=== PATIENT | female | born 1960 | race Caucasian/White ===

== ENCOUNTER 2017-12-30 00:40 | Inpatient (IN) | payer OTHER ==
[~2017-12-30] VITALS: Ht 152.4 cm; Wt 63.0 kg
[2017-12-30] MEDS ORDERED: ONDANSETRON 2MG/ML, 2ML ONE (01:25)
[2017-12-30] MEDS ORDERED: MORPHINE SULFATE 4 MG/ML, 1ML ONE ×3 (01:25→03:50)
[2017-12-30] MEDS: MORPHINE SULFATE 4 MG/ML, 1ML IVPush PRN ×2 (01:28→03:05)
[2017-12-30] MEDS ORDERED: ONDANSETRON 2MG/ML, 2ML IVPush ONE (01:30)
[2017-12-30] MEDS ORDERED: SODIUM CHLORIDE FLUSH 10ML SYR IVF ONE (01:30)
[2017-12-30 01:52] LABS: BASOPHILS # (AUTO) 0.02 x10^3/uL (0-0.1); BASOPHILS % (AUTO) 0 % (0-1); EOSINOPHILS # (AUTO) 0.17 x10^3/uL (0-0.4); EOSINOPHILS % (AUTO) 2 % (1-7); LYMPHOCYTES # (AUTO) 1.09 x10^3/uL (1-3.4); LYMPHOCYTES % (AUTO) 10 % (22-44); MD NO; MEAN CORPUSCULAR HEMOGLOBIN 32.3 pg (27.0-34.8); MEAN CORPUSCULAR HGB CONC 33.3 g/dL (32.4-35.8); MEAN CORPUSCULAR VOLUME 96.9 fL (80-100); MEAN PLATELET VOLUME 7.9 fL (7.4-10.4); MONOCYTES # (AUTO) 0.51 x10^3/uL (0.2-0.8); MONOCYTES % (AUTO) 5 % (2-9); NEUTROPHILS # (AUTO) 9.18 x10^3/uL (1.8-6.8); NEUTROPHILS % (AUTO) 84 % (42-75); PLATELET COUNT 330 x10^3/uL (130-400); RED BLOOD COUNT 3.08 x10^6/uL (3.82-5.3); RED CELL DISTRIBUTION WIDTH 16.1 % (9.6-15.2)
[2017-12-30 02:03] LABS: ALANINE AMINOTRANSFERASE 25 U/L (12-78); ALBUMIN 3.1 g/dL (3.4-5.0); ANION GAP 11 mmol/L (5-15); CALCIUM 9.3 mg/dL (8.5-10.1); CHLORIDE 100 mmol/L (98-107)
[2017-12-30 02:08] LABS: ALKALINE PHOSPHATASE 223 U/L (45-117); BILIRUBIN,TOTAL 0.4 mg/dL (0.2-1.0); TOTAL PROTEIN 6.7 g/dL (6.4-8.2); TROPONIN I < 0.015 ng/mL (0.000-0.045)
[2017-12-30 02:13] LABS: INTERNATIONAL NORMALIZED RATIO 0.97 (0.93-1.1)
[2017-12-30] MEDS ORDERED: SEVE800T8 PO (03:14)
[2017-12-30] MEDS ORDERED: OMEP-110 PO (03:15)
[2017-12-30] MEDS ORDERED: ONDA4TAB10 PO (03:16)
[2017-12-30] MEDS ORDERED: ALBU18HF INH (03:17)
[2017-12-30] MEDS ORDERED: CETI10TA24 PO (03:18)
[2017-12-30] MEDS ORDERED: astelin spray (03:19)
[2017-12-30] MEDS ORDERED: SENN-87 PO (03:20)
[2017-12-30] MEDS ORDERED: CALC400T40 PO (03:21)
[2017-12-30] MEDS ORDERED: MOME17SP NAS (03:23)
[2017-12-30] MEDS ORDERED: MONT10TA6 PO (03:26)
[2017-12-30] MEDS ORDERED: CHOL2000 PO (03:44)
[2017-12-30] MEDS ORDERED: MORPHINE SULFATE 4 MG/ML, 1ML IVPush ONE (04:00)
[2017-12-30 04:44] VITALS: BP 94/64
[2017-12-30] MEDS ORDERED: POLYETHYLENE GLYCOL 17 GM PACKET PO PRN (06:30)
[2017-12-30] MEDS ORDERED: ACETAMINOPHEN 325 MG TABLET PO PRN (06:30)
[2017-12-30] MEDS ORDERED: OXYcodone IR 5MG TABLET PO PRN (06:30)
[2017-12-30] MEDS: ASPIRIN 81 MG TABLET EC PO SCH (06:30)
[2017-12-30] MEDS ORDERED: morphine SULFATE 10 MG/ML, 1ML IVPush PRN (06:30)
[2017-12-30] MEDS ORDERED: DOCUSATE 100 MG CAPSULE PO PRN (06:30)
[2017-12-30] MEDS ORDERED: BISACODYL 10 MG SUPP PR PRN (06:30)
[2017-12-30] MEDS ORDERED: hydrALAzine 20 MG/ML, 1ML IVPush PRN (06:30)
[2017-12-30] MEDS ORDERED: NITROGLYCERIN 0.4 MG BOTTLE (25 TABS) SL PRN (06:30)
[2017-12-30 07:06] LABS: FREE T4 (FREE THYROXINE) 1.01 ng/dL (0.76-1.46); THYROID STIMULATING HORMONE 1.3 mIU/L (0.358-3.740)
[2017-12-30 07:10] LABS: HEMOGLOBIN A1C 4.4 % (4.2-6.3)
[2017-12-30] MEDS: HEPARIN 5,000 UNITS/ML, 1ML SQ SCH ×2 (07:14→16:41)
[2017-12-30] MEDS: SEVELAMER 800MG TABLET PO SCH ×3 (09:01→17:09)
[2017-12-30 09:08] LABS: TROPONIN I < 0.015 ng/mL (0.000-0.045)
[2017-12-30 09:14] VITALS: BP 104/69
[2017-12-30] MEDS: CHOLECALCIFEROL 1,000 UNIT TABLET PO SCH (09:17)
[2017-12-30] MEDS: ALBUTEROL SULFATE INH SCH ×2 (09:17→15:28)
[2017-12-30] MEDS: SENNOSIDES 8.6 MG TABLET PO SCH (09:18)
[2017-12-30] MEDS: FLUTICASONE NASAL SPRAY 16GM NAS SCH (10:36)
[2017-12-30] MEDS ORDERED: REGADENOSON 0.4 MG/5 ML SYRINGE ONE (11:49)
[2017-12-30 14:15] LABS: TROPONIN I < 0.015 ng/mL (0.000-0.045)
[2017-12-30 14:43] VITALS: BP 115/72
[2017-12-30] MEDS: ONDANSETRON 2MG/ML, 2ML IVPush PRN (17:09)
[2017-12-30] MEDS ORDERED: OMNIPAQUE 350 MG/ML, 100ML BOTTLE ONE (17:15)
[2017-12-30] MEDS ORDERED: ALBUTEROL SULFATE 2.5 MG/3 ML NPPB PRN (17:30)
[2017-12-30] MEDS ORDERED: HEPARIN 25,000 UNITS/500ML PMX 500 ML ONE (17:46)
[2017-12-30] MEDS ORDERED: HEPARIN 5,000 UNITS/ML, 1ML IV ONE (18:00)
[2017-12-30 22:20] VITALS: BP 107/70
[2017-12-30] MEDS: HEPARIN 25,000 UNITS/500ML PMX 500 ML IV PRN (23:20)
[2017-12-30] MEDS: CALCIUM CARBONATE 500 MG TABLET PO SCH (23:21)
[2017-12-30] MEDS: ONDANSETRON ODT 4 MG PO SCH (23:21)
[2017-12-30] MEDS: MONTELUKAST 10 MG TABLET PO SCH (23:21)
[2017-12-30] MEDS: OMEPRAZOLE 20 MG CAPSULE.DR PO SCH (23:21)
[2017-12-31 02:12] VITALS: BP 100/68
[2017-12-31] MEDS: ASPIRIN 81 MG TABLET EC PO SCH (05:13)
[2017-12-31 05:52] LABS: MEAN CORPUSCULAR HEMOGLOBIN 32.6 pg (27.0-34.8); MEAN CORPUSCULAR HGB CONC 33.3 g/dL (32.4-35.8); MEAN CORPUSCULAR VOLUME 97.8 fL (80-100); MEAN PLATELET VOLUME 7.6 fL (7.4-10.4); PLATELET COUNT 277 x10^3/uL (130-400); RED BLOOD COUNT 2.86 x10^6/uL (3.82-5.3); RED CELL DISTRIBUTION WIDTH 16.4 % (9.6-15.2)
[2017-12-31 05:55] LABS: ALANINE AMINOTRANSFERASE 268 U/L (12-78); ALBUMIN 2.7 g/dL (3.4-5.0); ANION GAP 8 mmol/L (5-15); CALCIUM 8.2 mg/dL (8.5-10.1); CHLORIDE 103 mmol/L (98-107); CREATININE 5.41 mg/dL (0.55-1.02)
[2017-12-31 05:58] LABS: ALKALINE PHOSPHATASE 378 U/L (45-117); BILIRUBIN,TOTAL 0.9 mg/dL (0.2-1.0); CHOLESTEROL, TOTAL 133 mg/dL (140-239); HDL CHOL % 50 % (28-40); HDL CHOLESTEROL (DIRECT) 66 mg/dL (40-60); LDL CHOLESTEROL,CALCULATED 55 mg/dL (54-169); LDL/HDL RATIO 0.8 (0.5-3.0); TOTAL PROTEIN 5.8 g/dL (6.4-8.2); TRIGLYCERIDES 62 mg/dL (50-200); VLDL CHOLESTEROL 12 mg/dL (0-25)
[2017-12-31 06:11] LABS: BASOPHILS # (AUTO) 0.03 x10^3/uL (0-0.1); BASOPHILS % (AUTO) 1 % (0-1); EOSINOPHILS # (AUTO) 0.21 x10^3/uL (0-0.4); EOSINOPHILS % (AUTO) 4 % (1-7); LYMPHOCYTES # (AUTO) 0.72 x10^3/uL (1-3.4); LYMPHOCYTES % (AUTO) 14 % (22-44); MD SCAN; MONOCYTES # (AUTO) 0.58 x10^3/uL (0.2-0.8); MONOCYTES % (AUTO) 12 % (2-9); NEUTROPHILS % (AUTO) 69 % (42-75)
[2017-12-31] MEDS: HEPARIN 5,000 UNITS/ML, 1ML IV PRN ×2 (06:35→19:10)
[2017-12-31] MEDS: ALBUTEROL SULFATE INH SCH ×2 (07:19→20:53)
[2017-12-31 08:11] VITALS: BP 99/60
[2017-12-31] MEDS: SENNOSIDES 8.6 MG TABLET PO SCH (08:19)
[2017-12-31] MEDS: SEVELAMER 800MG TABLET PO SCH ×3 (08:19→16:31)
[2017-12-31] MEDS: CHOLECALCIFEROL 1,000 UNIT TABLET PO SCH (08:19)
[2017-12-31] MEDS: FLUTICASONE NASAL SPRAY 16GM NAS SCH (08:19)
[2017-12-31 10:29] LABS: GAMMA GLUTAMYL TRANSPEPTIDASE 286 U/L (5-55)
[2017-12-31 10:31] LABS: CREATINE KINASE, TOTAL 34 U/L (26-192)
[2017-12-31 12:52] VITALS: BP 111/70
[2017-12-31] MEDS: MONTELUKAST 10 MG TABLET PO SCH (20:51)
[2017-12-31] MEDS: OMEPRAZOLE 20 MG CAPSULE.DR PO SCH (20:51)
[2017-12-31] MEDS: CALCIUM CARBONATE 500 MG TABLET PO SCH (20:51)
[2017-12-31] MEDS: ONDANSETRON ODT 4 MG PO SCH (20:51)
[2017-12-31 20:53] VITALS: BP 117/74
[2018-01-01 01:44] LABS: BASOPHILS # (AUTO) 0.03 x10^3/uL (0-0.1); BASOPHILS % (AUTO) 1 % (0-1); EOSINOPHILS # (AUTO) 0.32 x10^3/uL (0-0.4); EOSINOPHILS % (AUTO) 6 % (1-7); LYMPHOCYTES # (AUTO) 1.31 x10^3/uL (1-3.4); LYMPHOCYTES % (AUTO) 26 % (22-44); MD NO; MEAN CORPUSCULAR HEMOGLOBIN 32.3 pg (27.0-34.8); MEAN CORPUSCULAR HGB CONC 32.9 g/dL (32.4-35.8); MEAN CORPUSCULAR VOLUME 98.2 fL (80-100); MEAN PLATELET VOLUME 8.1 fL (7.4-10.4); MONOCYTES # (AUTO) 0.64 x10^3/uL (0.2-0.8); MONOCYTES % (AUTO) 13 % (2-9); NEUTROPHILS # (AUTO) 2.73 x10^3/uL (1.8-6.8); NEUTROPHILS % (AUTO) 54 % (42-75); PLATELET COUNT 270 x10^3/uL (130-400); RED BLOOD COUNT 2.74 x10^6/uL (3.82-5.3); RED CELL DISTRIBUTION WIDTH 16.6 % (9.6-15.2)
[2018-01-01 01:57] LABS: ALBUMIN 2.5 g/dL (3.4-5.0); ANION GAP 11 mmol/L (5-15); CALCIUM 8.2 mg/dL (8.5-10.1); CHLORIDE 101 mmol/L (98-107)
[2018-01-01 02:00] LABS: ALANINE AMINOTRANSFERASE 175 U/L (12-78); ALKALINE PHOSPHATASE 316 U/L (45-117); BILIRUBIN,TOTAL 0.5 mg/dL (0.2-1.0); CREATININE 8.54 mg/dL (0.55-1.02); TOTAL PROTEIN 5.8 g/dL (6.4-8.2)
[2018-01-01 02:15] VITALS: BP 106/70
[2018-01-01] MEDS: ASPIRIN 81 MG TABLET EC PO SCH (05:34)
[2018-01-01] MEDS: HEPARIN 25,000 UNITS/500ML PMX 500 ML IV PRN (05:34)
[2018-01-01] MEDS: SEVELAMER 800MG TABLET PO SCH ×3 (08:20→17:45)
[2018-01-01 08:28] VITALS: BP 110/69
[2018-01-01] MEDS: ALBUTEROL SULFATE INH SCH ×2 (09:21→21:00)
[2018-01-01] MEDS: SENNOSIDES 8.6 MG TABLET PO SCH (09:24)
[2018-01-01] MEDS: FLUTICASONE NASAL SPRAY 16GM NAS SCH (09:26)
[2018-01-01] MEDS: CHOLECALCIFEROL 1,000 UNIT TABLET PO SCH (09:26)
[2018-01-01] MEDS ORDERED: WARFARIN HIGH DOSE PROTOCOL XX PRN (10:00)
[2018-01-01] MEDS ORDERED: WARFARIN BIOPROSTHETIC VALVE PROTOCOL 2-3 XX PRN (10:00)
[2018-01-01 10:36] LABS: INTERNATIONAL NORMALIZED RATIO 0.98 (0.93-1.1); PROTHROMBIN TIME 10.1 Seconds (9.6-11.5)
[2018-01-01] MEDS ORDERED: LIDOCAINE 1%, 20ML ONE (10:41)
[2018-01-01] MEDS ORDERED: MIDAZOLAM 1 MG/ML, 2ML ONE ×2 (10:51→10:52)
[2018-01-01] MEDS ORDERED: FENTANYL PF 100 MCG/2ML ONE (10:51)
[2018-01-01] MEDS ORDERED: FLUMAZENIL 0.1 MG/1 ML, 5ML ONE (10:52)
[2018-01-01] MEDS ORDERED: NALOXONE 1 MG/ML, 2ML ONE (10:52)
[2018-01-01] MEDS ORDERED: CEFAZOLIN PMX 1GM/50ML 50 ML ONE (10:56)
[2018-01-01 12:17] VITALS: BP 105/71
[2018-01-01] MEDS ORDERED: WARFARIN 7.5 MG TABLET PO-COUM ONE (18:00)
[2018-01-01 19:02] VITALS: BP 105/71
[2018-01-01] MEDS: OMEPRAZOLE 20 MG CAPSULE.DR PO SCH (20:46)
[2018-01-01] MEDS: MONTELUKAST 10 MG TABLET PO SCH (20:46)
[2018-01-01] MEDS: CALCIUM CARBONATE 500 MG TABLET PO SCH (20:46)
[2018-01-01] MEDS: ONDANSETRON ODT 4 MG PO SCH (20:46)
[2018-01-02 02:08] VITALS: BP 116/77
[2018-01-02] MEDS: ASPIRIN 81 MG TABLET EC PO SCH (05:10)
[2018-01-02 05:41] LABS: BASOPHILS # (AUTO) 0.03 x10^3/uL (0-0.1); BASOPHILS % (AUTO) 1 % (0-1); EOSINOPHILS # (AUTO) 0.19 x10^3/uL (0-0.4); EOSINOPHILS % (AUTO) 5 % (1-7); LYMPHOCYTES % (AUTO) 19 % (22-44); MD NO; MEAN CORPUSCULAR HEMOGLOBIN 32.5 pg (27.0-34.8); MEAN CORPUSCULAR HGB CONC 33.9 g/dL (32.4-35.8); MEAN PLATELET VOLUME 7.9 fL (7.4-10.4); MONOCYTES # (AUTO) 0.46 x10^3/uL (0.2-0.8); MONOCYTES % (AUTO) 11 % (2-9); NEUTROPHILS # (AUTO) 2.68 x10^3/uL (1.8-6.8); NEUTROPHILS % (AUTO) 65 % (42-75); PLATELET COUNT 276 x10^3/uL (130-400); RED BLOOD COUNT 3.14 x10^6/uL (3.82-5.3); RED CELL DISTRIBUTION WIDTH 16.5 % (9.6-15.2)
[2018-01-02 05:42] LABS: INTERNATIONAL NORMALIZED RATIO 0.97 (0.93-1.1)
[2018-01-02 05:53] LABS: ANION GAP 11 mmol/L (5-15); CALCIUM 8.3 mg/dL (8.5-10.1); CHLORIDE 93 mmol/L (98-107)
[2018-01-02 05:54] LABS: CREATININE 5.25 mg/dL (0.55-1.02)
[2018-01-02] MEDS: HEPARIN 5,000 UNITS/ML, 1ML IV PRN ×2 (06:07→14:11)
[2018-01-02] MEDS: ONDANSETRON 2MG/ML, 2ML IVPush PRN (06:37)
[2018-01-02 06:45] VITALS: BP 102/69
[2018-01-02 07:50] LABS: ALANINE AMINOTRANSFERASE 120 U/L (12-78)
[2018-01-02 07:52] LABS: ALKALINE PHOSPHATASE 325 U/L (45-117)
[2018-01-02] MEDS: SEVELAMER 800MG TABLET PO SCH ×3 (08:00→17:55)
[2018-01-02] MEDS: CALCIUM CARBONATE 500 MG TABLET PO SCH ×2 (09:00→21:41)
[2018-01-02] MEDS: MONTELUKAST 10 MG TABLET PO SCH ×2 (09:00→21:41)
[2018-01-02] MEDS: ALBUTEROL SULFATE INH SCH ×2 (09:00→21:00)
[2018-01-02] MEDS: SENNOSIDES 8.6 MG TABLET PO SCH (09:15)
[2018-01-02] MEDS: CHOLECALCIFEROL 1,000 UNIT TABLET PO SCH (09:16)
[2018-01-02] MEDS ORDERED: LIDOCAINE 2%, 20ML ONE ×2 (09:21→10:23)
[2018-01-02] MEDS ORDERED: MIDAZOLAM 1 MG/ML, 2ML ONE (09:55)
[2018-01-02] MEDS ORDERED: FENTANYL PF 100 MCG/2ML ONE (09:55)
[2018-01-02] MEDS ORDERED: VISIPAQUE 270 MG/ML, 50ML BOTTLE ONE (10:00)
[2018-01-02] MEDS: FLUTICASONE NASAL SPRAY 16GM NAS SCH (11:40)
[2018-01-02 11:49] VITALS: BP 110/74
[2018-01-02 14:18] VITALS: BP 103/68
[2018-01-02] MEDS ORDERED: WARFARIN 7.5 MG TABLET PO-COUM ONE (18:00)
[2018-01-02] MEDS ORDERED: CINA30TA2 PO (18:38)
[2018-01-02 20:09] VITALS: BP 101/66
[2018-01-02] MEDS: HEPARIN 25,000 UNITS/500ML PMX 500 ML IV PRN (21:38)
[2018-01-02] MEDS: OMEPRAZOLE 20 MG CAPSULE.DR PO SCH (21:41)
[2018-01-02] MEDS: ONDANSETRON ODT 4 MG PO SCH (21:41)
[2018-01-03 01:33] VITALS: BP 108/71
[2018-01-03 01:36] VITALS: BP 108/71
[2018-01-03 02:16] LABS: PROTHROMBIN TIME 10.3 Seconds (9.6-11.5)
[2018-01-03] MEDS: HEPARIN 5,000 UNITS/ML, 1ML IV PRN (03:29)
[2018-01-03] MEDS: ASPIRIN 81 MG TABLET EC PO SCH (06:00)
[2018-01-03] MEDS: SEVELAMER 800MG TABLET PO SCH ×3 (08:10→18:16)
[2018-01-03] MEDS: FLUTICASONE NASAL SPRAY 16GM NAS SCH (08:10)
[2018-01-03] MEDS: SENNOSIDES 8.6 MG TABLET PO SCH (08:10)
[2018-01-03] MEDS: CHOLECALCIFEROL 1,000 UNIT TABLET PO SCH (08:10)
[2018-01-03] MEDS: ALBUTEROL SULFATE INH SCH ×2 (08:11→21:00)
[2018-01-03 08:14] VITALS: BP 98/67
[2018-01-03] MEDS ORDERED: ESTR30CR VG (08:15)
[2018-01-03] MEDS: ESTROGENS CONJUGATED VAG CRM 0.625MG/1G, 30GM VG SCH (10:58)
[2018-01-03] MEDS: WARFARIN MODERAT DOSE PROTOCOL XX SCH (12:00)
[2018-01-03 13:40] VITALS: BP 103/71
[2018-01-03] MEDS ORDERED: WARFARIN 5 MG TABLET PO-COUM SCH (18:00)
[2018-01-03] MEDS: CINACALCET 30 MG TABLET PO SCH (18:17)
[2018-01-03 19:00] VITALS: BP 111/72
[2018-01-03] MEDS: MONTELUKAST 10 MG TABLET PO SCH (21:47)
[2018-01-03] MEDS: OMEPRAZOLE 20 MG CAPSULE.DR PO SCH (21:48)
[2018-01-03] MEDS: CALCIUM CARBONATE 500 MG TABLET PO SCH (21:48)
[2018-01-03] MEDS: ONDANSETRON ODT 4 MG PO SCH (21:48)
[2018-01-03] MEDS: HEPARIN 25,000 UNITS/500ML PMX 500 ML IV PRN (21:58)
[2018-01-04 01:35] VITALS: BP 93/60
[2018-01-04] MEDS: ASPIRIN 81 MG TABLET EC PO SCH (05:29)
[2018-01-04 05:32] LABS: INTERNATIONAL NORMALIZED RATIO 1.36 (0.93-1.1); PROTHROMBIN TIME 13.9 Seconds (9.6-11.5)
[2018-01-04 07:47] VITALS: BP 92/63
[2018-01-04] MEDS: FLUTICASONE NASAL SPRAY 16GM NAS SCH (08:44)
[2018-01-04] MEDS: SEVELAMER 800MG TABLET PO SCH ×3 (08:44→17:06)
[2018-01-04] MEDS: SENNOSIDES 8.6 MG TABLET PO SCH (08:44)
[2018-01-04] MEDS: CHOLECALCIFEROL 1,000 UNIT TABLET PO SCH (08:44)
[2018-01-04] MEDS: CINACALCET 30 MG TABLET PO SCH (08:44)
[2018-01-04] MEDS: ESTROGENS CONJUGATED VAG CRM 0.625MG/1G, 30GM VG SCH (08:45)
[2018-01-04] MEDS: ALBUTEROL SULFATE INH SCH ×2 (09:00→20:19)
[2018-01-04] MEDS ORDERED: ONDANSETRON 4 MG TABLET PO PRN (09:30)
[2018-01-04] MEDS: ONDANSETRON 2MG/ML, 2ML IVPush PRN (09:34)
[2018-01-04] MEDS: WARFARIN MODERAT DOSE PROTOCOL XX SCH (12:00)
[2018-01-04 15:17] VITALS: BP 102/64
[2018-01-04] MEDS ORDERED: WARFARIN 5 MG TABLET PO-COUM ONE (16:58)
[2018-01-04] MEDS ORDERED: WARFARIN 10 MG TABLET PO-COUM SCH (18:00)
[2018-01-04 18:43] VITALS: BP 98/61
[2018-01-04] MEDS: MONTELUKAST 10 MG TABLET PO SCH (20:19)
[2018-01-04] MEDS: CALCIUM CARBONATE 500 MG TABLET PO SCH (20:19)
[2018-01-04] MEDS: ONDANSETRON ODT 4 MG PO SCH (20:19)
[2018-01-04] MEDS: OMEPRAZOLE 20 MG CAPSULE.DR PO SCH (20:19)
[2018-01-05 00:29] VITALS: BP 90/60
[2018-01-05] MEDS: HEPARIN 25,000 UNITS/500ML PMX 500 ML IV PRN (00:38)
[2018-01-05] MEDS: ASPIRIN 81 MG TABLET EC PO SCH (05:30)
[2018-01-05 05:50] LABS: PROTHROMBIN TIME 20.3 Seconds (9.6-11.5)
[2018-01-05] MEDS ORDERED: WARF5TAB PO-COUM (07:33)
[2018-01-05 07:45] VITALS: BP 98/66
[2018-01-05] MEDS: ALBUTEROL SULFATE INH SCH (09:00)
[2018-01-05] MEDS: ONDANSETRON 2MG/ML, 2ML IVPush PRN (09:01)
[2018-01-05] MEDS: FLUTICASONE NASAL SPRAY 16GM NAS SCH (09:01)
[2018-01-05] MEDS: SEVELAMER 800MG TABLET PO SCH ×2 (09:14→13:14)
[2018-01-05] MEDS: WARFARIN MODERAT DOSE PROTOCOL XX SCH (12:00)
[2018-01-05] MEDS: CHOLECALCIFEROL 1,000 UNIT TABLET PO SCH (13:15)
[2018-01-05] MEDS: SENNOSIDES 8.6 MG TABLET PO SCH (13:15)
[2018-01-05] MEDS: ESTROGENS CONJUGATED VAG CRM 0.625MG/1G, 30GM VG SCH (13:15)
[2018-01-05] MEDS: CINACALCET 30 MG TABLET PO SCH (13:15)
[2018-01-05] MEDS: OMEPRAZOLE 20 MG CAPSULE.DR PO SCH (14:28)
[2018-01-05] MEDS ORDERED: ALUMINUM/MAG/SIMETHICONE 30 ML UDC PO ONE (14:30)
[2018-01-05 14:59] VITALS: BP 112/69
[2018-01-05] MEDS ORDERED: WARFARIN 5 MG TABLET PO-COUM SCH (18:00)
== END 2018-01-05 15:36 | disposition home or self-care (01) | DRG 175 ==
LOC: ED 02:06 → EDIP 03:50 → 5SO 04:40 → 4WST 01-01 13:24
PROVIDERS: ADMIT Internal Medicine; ATTEND Hospitalist
PROC: 5A1D70Z Performance of Urinary Filtration, Intermittent, Less than 6 Hours Per Day (ICD-10-PCS; principal; 2017-12-30)
PROC: 5A1D70Z Performance of Urinary Filtration, Intermittent, Less than 6 Hours Per Day (ICD-10-PCS; 2018-01-01)
PROC: 5A1D70Z Performance of Urinary Filtration, Intermittent, Less than 6 Hours Per Day (ICD-10-PCS; 2018-01-01)
PROC: 5A1D70Z Performance of Urinary Filtration, Intermittent, Less than 6 Hours Per Day (ICD-10-PCS; 2018-01-01)
PROC: 5A1D70Z Performance of Urinary Filtration, Intermittent, Less than 6 Hours Per Day (ICD-10-PCS; 2018-01-01)
PROC: 0J2TXYZ Change Other Device in Trunk Subcutaneous Tissue and Fascia, External Approach (ICD-10-PCS; 2018-01-01)
PROC: 0J2TXYZ Change Other Device in Trunk Subcutaneous Tissue and Fascia, External Approach (ICD-10-PCS; 2018-01-02)
DX: I26.99 Other pulmonary embolism without acute cor pulmonale (principal); E43 Unspecified severe protein-calorie malnutrition; T86.12 Kidney transplant failure; K86.2 Cyst of pancreas; N18.6 End stage renal disease; E87.1 Hypo-osmolality and hyponatremia; N25.0 Renal osteodystrophy; N25.81 Secondary hyperparathyroidism of renal origin; J98.11 Atelectasis; D63.1 Anemia in chronic kidney disease; Z68.27 Body mass index [BMI] 27.0-27.9, adult; J45.909 Unspecified asthma, uncomplicated; M19.90 Unspecified osteoarthritis, unspecified site; Y83.0 Surgical operation with transplant of whole organ as the cause of abnormal reaction of the patient, or of later complication, without mention of misadventure at the time of the procedure; Z79.01 Long term (current) use of anticoagulants; Z83.3 Family history of diabetes mellitus; Z99.2 Dependence on renal dialysis; Z88.8 Allergy status to other drugs, medicaments and biological substances; I51.7 Cardiomegaly; E20.9 Hypoparathyroidism, unspecified
CPT/HCPCS: 36415; 36581; 71045; 71275; 75984; 76705; 78452; 80053; 80061; 80069; 82550; 82977; 83036; 83690; 83735; 84075; 84100; 84439; 84443; 84450; 84460; 84484; 85025; 85379; 85520; 85610; 85730; 86704; 86706; 87340; 93005; 93017; 93306; 93970; 96374; 96375; 96376; 99156; 99157; J0690; J1644; J2250; J2405; J2785; J3010; J3490; Q0162; Q9966; Q9967; A9502; C1750; C1751; C1769; C1892; C9898; J1642; J2310